=== PATIENT | male | born 1960 | race Caucasian/White ===

== ENCOUNTER 2020-04-27 21:31 | Emergency (ER) | payer BC ==
[~2020-04-27] VITALS: Ht 175.3 cm; Wt 70.0 kg
--- NOTE | 2020-04-27 22:27 | PHYS DOC ---
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 Reports he accidentally stuck it in his leg. Reports there was some immediate bleeding to the site which is now resolved. Reports last tetanus booster was less than 5 years ago. Denies other complaint. Review of Systems: Review of Systems: Constitutional: Denies fever or chills Musculoskeletal: Denies back pain or joint pain Integument: Denies rash; laceration to distal left thigh Complete systems were reviewed and found to be within normal limits, except as documented in this note. Physical Exam: PE: Constitutional: Well developed, well nourished, no acute distress, non-toxic appearance HENT: Normocephalic, atraumatic Eyes: Conjunctiva normal, no discharge Neck: Normal range of motion, supple Lungs & Thorax: No respiratory distress, equal chest rise and fall Skin: Warm, dry, no erythema, 1cm laceration to left distal medial thigh, no active bleeding noted Extremities: No tenderness, ROM intact, no edema Neurologic: Alert and oriented X 3, no focal deficits noted Psychologic: Affect normal, judgment normal EKG: EKG: [] Radiology/Procedures: Radiology/Procedures: [] Course & Med Decision Making: Course & Med Decision Making Patient presents with small laceration to left medial distal thigh. Wound cleaned, irrigated, and repaired with skin glue. Tetanus up-to-date. Patient stable for discharge with outpatient follow-up with PCP. Discussed findings and plan with patient, who acknowledges understanding and agreement. Bety Disclaimer: Bety Disclaimer: This electronic medical record was generated, in whole or in part, using a voice recognition dictation system. Laceration/Wound Repair Laceration/Wound Repair : Wound Location: lower extremity (left thigh) Wound's Depth, Shape: superficial, linear Wound Length (cm): 1 Wound Explored: clean Irrigated w/ Saline (ccs): 200 Wound Debrided: minimal Wound Repaired With: Dermabond Progress Verbal consent obtained. Time out performed. Hand hygiene utilized. Wound cleaned with ChloraPrep and surgical sponge. Copious irrigation performed. Wound well approximated with Dermabond skin glue. Patient tolerated procedure well and without difficulty. Departure Departure Impression: Primary Impression: Laceration of left thigh Qualified Codes: S71.112A - Laceration without foreign body, left thigh, initial encounter Disposition: HOME, SELF-CARE Condition: STABLE Referrals: PRAVEEN CEE MD (PCP) Patient Instructions: Tissue Adhesive Wound Care, [id number] Additional Instructions: Do not soak your wound. You may shower. Clean wound daily with soap and water. Change dressing 2 times daily. DO NOT use over the counter antibiotic ointment as the skin glue will break down faster than required. Justicifation of Admission Dx: Justifications for Admission: Justification of Admission Dx: N/A RACHEL RICHARDS DO Apr 27, 2020 22:27
[2020-04-27 22:43] VITALS: BP 139/73
== END 2020-04-27 22:45 | disposition home or self-care (01) ==
LOC: ER 21:31
DX: S71.112A Laceration without foreign body, left thigh, initial encounter (principal); W27.8XXA Contact with other nonpowered hand tool, initial encounter; Y93.89 Activity, other specified; Y92.89 Other specified places as the place of occurrence of the external cause; Y99.8 Other external cause status
CPT/HCPCS: 12001; 99282; 99283